=== PATIENT | male | born 1960 | race Caucasian/White ===

== ENCOUNTER 2017-07-07 19:45 | Emergency (ER) | payer OTHER ==
[~2017-07-07] VITALS: Ht 172.7 cm; Wt 81.3 kg
[2017-07-07] MEDS ORDERED: GLUCAGON 1 MG IVPush ONE (20:00)
[2017-07-07] MEDS ORDERED: SODIUM CHLORIDE FLUSH 10ML SYR IVF ONE (20:00)
[2017-07-07] MEDS ORDERED: GLUCAGON 1 MG ONE (20:12)
[2017-07-07] MEDS ORDERED: PROPOFOL 10 MG/ML, 20ML ONE ×4 (20:29→22:04)
[2017-07-07] MEDS ORDERED: FENTANYL PF 100 MCG/2ML ONE (20:29)
[2017-07-07] MEDS ORDERED: FENTANYL PF 100 MCG/2ML IVPush ONE (20:30)
[2017-07-07] MEDS ORDERED: PROPOFOL 10 MG/ML, 20ML IVPush ONE (20:30)
[2017-07-07 22:50] VITALS: BP 156/79
== END 2017-07-07 23:30 | disposition home or self-care (01) ==
LOC: ED 22:55
DX: T18.128A Food in esophagus causing other injury, initial encounter (principal)
CPT/HCPCS: 43247; 96374; 99285; J1610; 88305